=== PATIENT | female | born 1970 | race Two or more races ===

== ENCOUNTER 2020-05-23 21:59 | Emergency (ER) | payer SELFPAY ==
[2020-05-23] MEDS ORDERED: Aspirin 81 MG Tab.Chew PO ONE (22:59)
[2020-05-23] MEDS ORDERED: Nitroglycerin 0.4 MG Tab.SL SL PRN (23:00)
[2020-05-23 23:33] LABS: CHLORIDE,CL 106 mEq/L (98-106); SODIUM,NA 142 mEq/L (136-145)
[2020-05-23 23:36] LABS: PTT,PARTIAL THROMBOPLSTIN TIME 21.9 SEC (23.2-32.3)
--- NOTE | 2020-05-23 23:47 | EDM.PDOC ---
ED HPI GENERAL MEDICAL PROBLEM - General Chief Complaint: General Stated Complaint: short of breath, pain in chest Time Seen by Provider: 05/23/20 23:00 Source of Information: Reports: Patient History Limitations: Reports: No Limitations - History of Present Illness INITIAL COMMENTS - FREE TEXT/NARRATIVE: presents to the ER with complaints of midsternal chest pain that radiates up into chest into the right side of her neck and into the mid back. She states that it started this am and has become worse this evening. She denies any SOB, cough, fever, diaphoresis, nausea, vomiting, diarrhea, change in pain when eating supper tonight. Does state that the pain is made worse with movement. She is here working construction. She denies any injury that she can recall. Has no history of gallbladder problems. Onset: Today Location: Reports: Chest, Abdomen, Back Quality: Reports: Sharp Worsens with: Reports: Movement Associated Symptoms: Reports: Chest Pain. Denies: Cough, Loss of Appetite, Nausea/Vomiting, Shortness of Breath Chest Pain Score (Numeric/FACES): 5 - Related Data Allergies Allergy/AdvReac Type Severity Reaction Status Date / Time fruits/especially cantaloupe Allergy Anaphylactic Uncoded 05/23/20 23:13 Shock Home Meds: Home Meds . [No Known Home Meds] 05/23/20 [History] Past Medical History - History Comment History Comment: see RN notes for past medical, surgical and family history. Social & Family History - Tobacco Use Smoking Status *Q: Never Smoker ED ROS GENERAL - Review of Systems Review Of Systems: See Below Constitutional: Denies: Fever, Chills, Weakness HEENT: Reports: No Symptoms Respiratory: Reports: No Symptoms. Denies: Cough Cardiovascular: Reports: Chest Pain GI/Abdominal: Reports: Abdominal Pain : Reports: No Symptoms Musculoskeletal: Reports: Back Pain Skin: Reports: No Symptoms Neurological: Reports: No Symptoms Psychiatric: Reports: No Symptoms ED EXAM, GENERAL - Physical Exam Exam: See Below Exam Limited By: No Limitations General Appearance: Alert, WD/WN, Mild Distress Ears: Normal External Exam, Normal Canal, Normal TMs Nose: Normal Inspection Throat/Mouth: Normal Inspection, Normal Oropharynx Head: Atraumatic, Normocephalic Neck: Normal Inspection, Supple, Non-Tender, Full Range of Motion Respiratory/Chest: No Respiratory Distress, Lungs Clear, Normal Breath Sounds, Other (with palpation of the anterior chest wall she has sharp pain to the midsternum that radiates to the back and to the right anterior chest which she states is the same type of pain that she presented with. Pain does not change with deep breathe.) Cardiovascular: Regular Rate, Rhythm, No Edema GI/Abdominal: Normal Bowel Sounds, Soft, Non-Tender Back Exam: Normal Inspection, Full Range of Motion Extremities: Normal Inspection, Normal Range of Motion, Non-Tender, No Pedal Edema, Normal Capillary Refill Neurological: Alert, Oriented Psychiatric: Normal Affect Skin Exam: Warm, Dry, Intact Course - Vital Signs Last Recorded V/S: Last Vital Signs Temp 97.4 F 05/23/20 21:59 Pulse 79 05/23/20 21:59 Resp 16 05/23/20 21:59 BP Pulse Ox 96 05/23/20 21:59 - Orders/Labs/Meds Orders: Active Orders 24 hr Category Date Time Status EKG Documentation Completion [RC] STAT Care 05/23/20 22:58 Active Vital Signs [RC] Q1H Care 05/23/20 23:27 Active Chest 2V [CR] Stat Exams 05/23/20 22:58 Taken D-DIMER QUANTITATIVE [COAG] Stat Lab 05/23/20 23:10 Received INR,PT,PROTHROMBIN TIME [COAG] Stat Lab 05/23/20 23:10 Received PTT,PARTIAL THROMBOPLSTIN TIME [COAG] Stat Lab 05/23/20 23:10 Received Nitroglycerin [Nitrostat] Med 05/23/20 23:00 Active 0.4 mg SL Q5M PRN Medication Orders Nitroglycerin (Nitrostat) 0.4 mg SL Q5M PRN PRN Reason: Chest Pain Labs: Laboratory Tests 05/23/20 05/23/20 05/23/20 Range/Units 22:00 23:10 23:10 WBC 7.8 (5.0-10.0) 10^3/uL RBC 4.34 (4.00-5.50) 10^6/uL Hgb 13.0 (12.0-16.0) g/dL Hct 38.9 (37.0-47.0) % MCV 89.6 (82.0-94.0) fL MCH 30.0 (27.0-32.0) pg MCHC 33.4 (33.0-38.0) g/dL RDW Coeff of Emerson 13.5 (11.0-15.0) % Plt Count 256 (150-400) 10^3/uL Neut % (Auto) 54.5 (35-85) % Lymph % (Auto) 31.7 (10-55) % [place] % (Auto) 8.9 (0-16) % Eos % (Auto) 4.5 (0-5) % Baso % (Auto) 0.4 (0-3) % Neut # (Auto) 4.25 (1.80-7.00) 10^3/uL Lymph # (Auto) 2.47 (1.00-4.80) 10^3/uL [place] # (Auto) 0.69 (0.00-0.80) 10^3/uL Eos # (Auto) 0.35 (0.00-0.45) 10^3/uL Baso # (Auto) 0.03 10^3/uL Sodium 142 (136-145) mEq/L Potassium 3.7 (3.5-5.0) mEq/L Chloride 106 (98-106) mEq/L Carbon Dioxide 27 (21-32) mmol/L BUN 19 H (7-18) mg/dL Creatinine 0.9 (0.6-1.0) mg/dL Est Cr Clr Drug Dosing 53.71 mL/min Estimated GFR (MDRD) > 60 (>=60) mL/min Glucose 94 (75-99) mg/dL Calcium 8.7 (8.4-10.1) mg/dL Lactate Dehydrogenase 194 H (100-190) U/L Creatine Kinase 66 (21-215) U/L Troponin I < 0.017 (0.00-0.06) ng/mL COVID-19 (JAZIEL) Negative (NEGATIVE) Meds: Medications Generic Name Dose Route Start Last Admin Trade Name Freq PRN Reason Stop Dose Admin Nitroglycerin 0.4 mg 05/23/20 23:00 Nitrostat SL Q5M PRN Chest Pain Discontinued Medications Generic Name Dose Route Start Last Admin Trade Name Freq PRN Reason Stop Dose Admin Aspirin 324 mg 05/23/20 22:59 05/23/20 22:58 Aspirin PO 05/23/20 23:00 324 mg ONETIME ONE Administration - Re-Assessments/Exams Free Text/Narrative Re-Assessment/Exam: 05/23/20 23:57 discussed results with pt. Will discharge at this time. Departure - Departure Time of Disposition: 23:39 Disposition: Home, Self-Care 01 Condition: Good Clinical Impression: Costochondral chest pain - Discharge Information *PRESCRIPTION DRUG MONITORING PROGRAM REVIEWED*: Not Applicable *COPY OF PRESCRIPTION DRUG MONITORING REPORT IN PATIENT SAFIA: Not Applicable Instructions: Chest Wall Pain, [id number] Additional Instructions: tylenol or advil as needed for discomfort as needed no heavy lifting recheck in clinic if any changes or new concerns. Sepsis Event Note (ED) - Evaluation Sepsis Screening Result: No Definite Risk - Focused Exam Vital Signs: Vital Signs Temp Pulse Resp Pulse Ox 05/23/20 21:59 97.4 F 79 16 96 - Problem List & Annotations (1) Costochondral chest pain SNOMED Code(s): 874117889, 855304097 Code(s): R07.89 - OTHER CHEST PAIN Status: Acute Priority: High - Problem List Review Problem List Initiated/Reviewed/Updated: Yes - My Orders Last 24 Hours: My Active Orders 05/23/20 22:58 EKG Documentation Completion [RC] STAT Chest 2V [CR] Stat 05/23/20 23:00 Nitroglycerin [Nitrostat] 0.4 mg SL Q5M PRN 05/23/20 23:10 D-DIMER QUANTITATIVE [COAG] Stat INR,PT,PROTHROMBIN TIME [COAG] Stat PTT,PARTIAL THROMBOPLSTIN TIME [COAG] Stat 05/23/20 23:27 Vital Signs [RC] Q1H - Assessment/Plan Last 24 Hours: My Active Orders 05/23/20 22:58 EKG Documentation Completion [RC] STAT Chest 2V [CR] Stat 05/23/20 23:00 Nitroglycerin [Nitrostat] 0.4 mg SL Q5M PRN 05/23/20 23:10 D-DIMER QUANTITATIVE [COAG] Stat INR,PT,PROTHROMBIN TIME [COAG] Stat PTT,PARTIAL THROMBOPLSTIN TIME [COAG] Stat 05/23/20 23:27 Vital Signs [RC] Q1H
== END 2020-05-24 00:05 | disposition home or self-care (01) ==
LOC: CC.ED 21:59
DX: R07.1 Chest pain on breathing (principal); Z91.018 Allergy to other foods; Z20.828 Contact with and (suspected) exposure to other viral communicable diseases
CPT/HCPCS: 36415; 71046; 80048; 82550; 83615; 84484; 85025; 85379; 85610; 85730; 93005; 99285-25; A9270-GY; U0002